=== PATIENT | female | born 1995 | race Caucasian/White ===

== ENCOUNTER 2016-10-26 10:03 | Emergency (ER) | payer OTHER ==
[2016-10-26 10:14] VITALS: TEMP 98.2
[2016-10-26] MEDS ORDERED: PROPARACAINE 0.5% 15 ML OPHT DROP OP ONE (11:45)
[2016-10-26] MEDS ORDERED: FLUORESCEIN SODIUM 1 MG STRIP OP ONE (11:45)
--- NOTE | 2016-10-26 12:25 | EDPHY ---
H & P Time Seen by Provider: 10/26/16 11:44 HPI/ROS: CHIEF COMPLAINT: Right eye discharge in erythema HISTORY OF PRESENT ILLNESS: 21-year-old immunocompetent female no corrective lens use history, no exposure to high speed projectiles, complaining of 3 days of waking with crusting and itching to the right eye. No pain with extraocular movements. No fever no chills. No facial swelling or asymmetry. No URI symptoms. PHYSICAL EXAM (Prior to examination, patient consented to physical exam, hands were washed and my usual and customary physical exam procedures followed) 1) GENERAL: Well-developed, well-nourished, alert and oriented. Appears to be in no acute distress. 2) HEAD: Normocephalic 3) HEENT: sclera anicteric 4) LUNGS: Breathing comfortably. 5) OCULAR EXAM: Visual Acuity: noted from Nurse's notes. Pupils:equal round and reactive to light EOMI Lids: no edema or swelling, upper and lower lids were everted and no foreign bodies were visualized, no areas of increased fluorescein uptake. Skin: no proptosis, no periorbital erythema or swelling, no vesicles, no pain with extraocular movements. No crepitus. No asymmetry or spit facial swelling Conjunctivae: injected with clear discharge and dried crusting on the lids., negative Brenda test. Cornea: exam with fluorescein shows No areas of increased uptake. Anterior chamber:[normal, no hyphema or hypopyon Smoking Status: Former smoker Constitutional: Initial Vital Signs Temperature (C) 36.8 C 10/26/16 10:12 Heart Rate 92 10/26/16 10:12 Respiratory Rate 14 10/26/16 10:12 Blood Pressure 139/58 H 10/26/16 10:12 O2 Sat (%) 99 10/26/16 10:12 O2 Delivery Mode Room Air Allergies/Adverse Reactions: No Known Allergies Allergy (Unverified 10/26/16 10:14) Home Medications: Medication Instructions Recorded Ofloxacin 0.3% [Ocuflox 0.3%] 2 drops EACHEYE QID #1 opht.btl 10/26/16 MDM/Departure - MDM Medications Given: Discontinued Medications Fluorescein Sodium (Fkwld-R-Hvkuo) 1 mg OP EDNOW ONE Stop: 10/26/16 11:46 Last Admin: 10/26/16 11:47 Dose: 1 mg Proparacaine HCl (Alcaine 0.5%) 1 drops OP EDNOW ONE Stop: 10/26/16 11:46 Last Admin: 10/26/16 11:48 Dose: 1 drop ED Course/Re-evaluation: Doubt periorbital or orbital cellulitis. I think patient's symptoms are more than likely secondary to acute conjunctivitis. She will be prescribed Ocuflox drops and recommend follow up with Ophthalmology. Discharged with usual and customary ophthalmological precautions instructions - Depart Disposition: Home, Routine, Self-Care Clinical Impression: Conjunctivitis, right eye Qualifiers: Conjunctivitis type: acute Acute conjunctivitis type: bacterial Qualified Code( s): H10.31 - Unspecified acute conjunctivitis, right eye Condition: Good Instructions: Conjunctivitis (ED) Prescriptions: Ofloxacin 0.3% [Ocuflox 0.3%] 2 drops EACHEYE QID #1 opht.btl Referrals: Ac Izquierdo MD [Medical Doctor] - 10/30/16 (Dr. Ac Izquierdo is an dress draper)
[2016-10-26 12:37] VITALS: BP 127/79; PULSE 90; RESP 16; O2SAT 98
== END 2016-10-26 12:36 | disposition home or self-care (01) ==
DX: H10.31 Unspecified acute conjunctivitis, right eye (principal); Z87.891 Personal history of nicotine dependence

== ENCOUNTER 2016-11-02 16:45 | Emergency (ER) | payer OTHER ==
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
[2016-11-02] MEDS ORDERED: PROPARACAINE 0.5% 15 ML OPHT DROP OP ONE (17:30)
[2016-11-02] MEDS ORDERED: FLUORESCEIN SODIUM 1 MG STRIP OP ONE (17:30)
[2016-11-02] MEDS ORDERED: PROPARACAINE 0.5% 15 ML OPHT DROP ONE (17:31)
[2016-11-02] MEDS ORDERED: AZITHROMYCIN 250 MG TAB PO ONE (17:45)
[2016-11-02] MEDS ORDERED: CEFTRIAXONE IM 350 MG/ML SYRINGE IM ONE (17:45)
[2016-11-02] MEDS ORDERED: LIDOCAINE 2% JELLY 5 ML TUBE ONE ×2 (18:34→20:24)
[2016-11-02 18:43] LABS: LEUKOCYTE ESTERASE,URINE 1+ (NEGATIVE); NITRITE,URINE NEGATIVE (NEGATIVE)
[2016-11-02 18:46] LABS: COLOR RED; MUCUS 2+ /lpf (NONE-1+); RBC,URINE 50-182 /hpf (0-3); WBC,URINE 15-25 /hpf (0-3)
[2016-11-02 20:47] VITALS: BP 115/69; PULSE 69; RESP 18; TEMP 98.2; O2SAT 96
== END 2016-11-02 20:47 | disposition home or self-care (01) ==
DX: N30.01 Acute cystitis with hematuria (principal); A60.09 Herpesviral infection of other urogenital tract; A74.9 Chlamydial infection, unspecified; B96.89 Other specified bacterial agents as the cause of diseases classified elsewhere; H10.33 Unspecified acute conjunctivitis, bilateral; Z87.891 Personal history of nicotine dependence
CPT/HCPCS: J0696